=== PATIENT | female | born 1995 | race Hispanic/Latino ===

== ENCOUNTER → 2022-08-10 | Outpatient (CLI) | payer OTHER ==
[~2022-08-10] MED LIST: METHACHOLINE KIT INH ONE; NORG1TAB33; OCUF0.25 OP; VITA1CAP25
== END ==
LOC: M CARPUL 11:05
PROVIDERS: ATTEND Nurse Practitioner Family
DX: R06.2 Wheezing (principal)
CPT/HCPCS: 94070; 95070; J7674

== ENCOUNTER 2024-08-23 12:30 | Day surgery (SDC) | payer OTHER ==
[~2024-08-23] VITALS: Ht 152.4 cm; Wt 51.3 kg
[~2024-08-23 12:30] MED LIST changes: -METHACHOLINE KIT INH ONE
[2024-08-23 13:13] LABS: BASO % 0.4 % (0.0-1.0); EOS # 0.1 10^3/uL (0.0-0.5); EOS % 0.8 % (0.0-3.0); HEMATOCRIT 34.1 % (36.0-47.0); HEMOGLOBIN 11.6 g/dl (12.0-15.5); LYMPH % 18.7 % (24.0-44.0); MEAN CORPUSCULAR HEMOGLOBIN 31.4 pg (27.0-33.0); MEAN CORPUSCULAR VOLUME 92.4 fl (80.0-96.0); MONO # 0.6 10^3/uL (0.0-0.8); MONO % 5.4 % (2.0-8.0); NEUTROPHILS # 7.9 10^3/uL (1.5-8.5); NEUTROPHILS % 74.4 % (36.0-66.0); PLATELET COUNT, AUTOMATED 182 10^3/uL (150-450); RED BLOOD COUNT 3.69 10^6/uL (4.00-5.40); WHITE BLOOD COUNT 10.6 10^3/uL (4.0-10.0)
[2024-08-23] MEDS ORDERED: fentaNYL 100 MCG/2 ML INJECTION As Ordered ONE (17:28)
[2024-08-23] MEDS ORDERED: MIDAZOLAM INJ 2MG/2ML VIAL As Ordered ONE (17:28)
[2024-08-23] MEDS ORDERED: LIDOCAINE 2% 100MG/5ML SDV (FOR ANES.) As Ordered ONE (17:28)
[2024-08-23] MEDS ORDERED: ROCURONIUM BROMIDE 50MG/5ML VIAL As Ordered ONE (17:28)
[2024-08-23] MEDS ORDERED: ONDANSETRON 4MG 2ML VIAL As Ordered ONE (17:28)
[2024-08-23] MEDS ORDERED: propofoL 200 MG/20 ML VIAL As Ordered ONE (17:28)
[2024-08-23] MEDS: LR 1,000 ML IV SCH (17:47)
[2024-08-23] MEDS ORDERED: ACETAMINOPHEN 1000MG/100ML IV BAG As Ordered ONE (18:19)
[2024-08-23] MEDS: METHYLERGONOVINE MALEATE 0.2MG/ML 1ML VIAL As Ordered ONE (18:20)
[2024-08-23] MEDS: LIDOCAINE 1% SDV 30ML VIAL As Ordered ONE (18:21)
[2024-08-23] MEDS ORDERED: KETOROLAC 60MG 2ML VIAL As Ordered ONE (18:26)
[2024-08-23] MEDS: MIDAZOLAM INJ 2MG/2ML VIAL IV ONE (18:40)
[2024-08-23 19:35] VITALS: BP 112/61; TEMP 99.2; O2SAT 100
[2024-08-23 20:05] VITALS: BP 101/56; TEMP 98.2; O2SAT 98
[2024-08-23 20:35] VITALS: BP 104/54; TEMP 97.4; O2SAT 98
[2024-08-23] MEDS ORDERED: LR 1,000 ML IV SCH (20:45)
[2024-08-23] MEDS: ACETAMINOPHEN 500 MG TAB PO ONE (21:27)
[2024-08-23] MEDS: DOXYCYCLINE HYCLATE 100MG TABLET PO ONE (21:27)
[2024-08-23 21:35] VITALS: BP 116/57; TEMP 99.5; O2SAT 99
[2024-08-23] MEDS ORDERED: IBUP-1022 PO (22:02)
== END 2024-08-23 22:30 | disposition home or self-care (01) ==
LOC: M ED 12:30 → M SDC 12:31 → M PED 19:57 → UNDOADMIN 19:57 → M SDC 19:57 → M PED 19:57 → UNDODISIN 22:30 → M SDC 22:30
PROVIDERS: ATTEND Specialist
DX: O03.1 Delayed or excessive hemorrhage following incomplete spontaneous abortion (principal); Z88.0 Allergy status to penicillin
CPT/HCPCS: 36415; 59812; 76801; 76817; 84702; 85025; 86850; 86900; 86901; 88305; 99284; J0131; J1100; J1885; J2250; J2405; J3010

== ENCOUNTER → 2024-11-20 | Outpatient (CLI) | payer OTHER ==
[~2024-11-20] MED LIST changes: +IBUP-1022 PO
[2024-11-20 17:54] LABS: BASO % 0.5 % (0.0-1.0); EOS # 0.3 10^3/uL (0.0-0.5); EOS % 3.8 % (0.0-3.0); LYMPH # 2.6 10^3/uL (1.5-5.0); LYMPH % 39.4 % (24.0-44.0); MEAN CORPUSCULAR HGB CONC 32.6 g/dl (32.0-36.5); MEAN CORPUSCULAR VOLUME 92.1 fl (80.0-96.0); MONO # 0.7 10^3/uL (0.0-0.8); MONO % 11.3 % (2.0-8.0); NEUTROPHILS % 44.8 % (36.0-66.0); PLATELET COUNT, AUTOMATED 235 10^3/uL (150-450); RED BLOOD COUNT 4.67 10^6/uL (4.00-5.40); WHITE BLOOD COUNT 6.6 10^3/uL (4.0-10.0)
[2024-11-20 18:08] LABS: ALBUMIN 4.1 G/DL (3.2-5.2); ALKALINE PHOSPHATASE 79 U/L (35-104); ALT/SGPT 20 U/L (7.0-40); AST/SGOT 10 U/L (<34); BILIRUBIN,TOTAL 0.5 MG/DL (0.3-1.2); BLOOD UREA NITROGEN 18 MG/DL (9-23); CALCIUM LEVEL 9.8 MG/DL (8.5-10.1); CARBON DIOXIDE LEVEL 29 MMOL/L (20-31); CHLORIDE LEVEL 104 MMOL/L (98-107); CREATININE FOR GFR 0.51 MG/DL (0.55-1.30); GLOMERULAR FILTRATION RATE > 60.0 (>60); GLUCOSE, FASTING 84 MG/DL (60-100); POTASSIUM SERUM 4.2 MMOL/L (3.5-5.1); SODIUM LEVEL 140 MMOL/L (136-145); TOTAL PROTEIN 7.5 G/DL (5.7-8.2)
[2024-11-20 18:09] LABS: THYROID STIMULATING HORMONE 1.501 uIU/ML (0.55-4.78)
[2024-11-20 18:10] LABS: FREE T4 1.19 NG/DL (0.89-1.76)
== END ==
LOC: M LAB 16:40
PROVIDERS: ATTEND Physician Assistant
DX: J45.20 Mild intermittent asthma, uncomplicated (principal)

== ENCOUNTER → 2024-11-28 | Outpatient (CLI) | payer OTHER | LOC: M WHC 13:22 | PROVIDERS: ATTEND Physician Assistant | DX: E04.9 Nontoxic goiter, unspecified (principal) ==